=== PATIENT | female | born 1980 | race African-American/Black ===

== ENCOUNTER 2016-12-02 00:45 | Emergency (ER) | payer BC ==
[~2016-12-02] VITALS: Ht 152.4 cm; Wt 72.6 kg
[~2016-12-02 00:45] MED LIST: ABILIFY 2 MG2 M1; AMBIEN5 MG; ATIVAN0.5 MG; CLEOCIN HCL150 MG PO; COLACE100 MG PO; CYMBALTA20 MG; CYMBALTA60 MG PO; HYDRALAZINE 2525 M1; HYDRALAZINE 2525 M1 PO; HYDROCODONE-AP1 EAC6 PO; IBUPROFEN 200200 M1 PO; IRON325 PO; KLONOPIN0.5 MG PO; PHENERGAN 25 MG25 M1 PO; POTASSIUM20 PO; PROMS25 WY RECTAL; VITAFOL-OB+DHA1 EACH PO; XANAX 0.5 MG0.5 MG; ZANTAC 150MG T150 MG PO; ZOFRAN ODT4 MG PO; ZOLOFT25 MG
[2016-12-02 00:51] VITALS: BP 96/63
== END 2016-12-02 01:41 | disposition home or self-care (01) ==
LOC: ER 00:45
DX: M79.674 Pain in right toe(s) (principal); F32.9 Major depressive disorder, single episode, unspecified; F41.0 Panic disorder [episodic paroxysmal anxiety]; Z88.1 Allergy status to other antibiotic agents; Z91.013 Allergy to seafood; Z87.891 Personal history of nicotine dependence